=== PATIENT | female | born 1995 | race Caucasian/White ===

== ENCOUNTER 2019-02-23 10:22 | Emergency (ER) | payer MEDICAID ==
[~2019-02-23] VITALS: Ht 165.1 cm; Wt 72.4 kg
[2019-02-23 10:37] VITALS: BP 121/74; Ht 165.1 cm; Wt 72.4 kg
[2019-02-23] MEDS ORDERED: PRENAVITE1 TAB PO (10:38)
[2019-02-23] MEDS ORDERED: PENICILLIN V P500 MG PO (11:38)
[2019-03-15 11:35] VITALS: Ht 165.1 cm; Wt 72.4 kg
== END 2019-02-23 12:53 | disposition home or self-care (01) ==
LOC: D.ER 10:22
DX: K08.89 Other specified disorders of teeth and supporting structures (principal)

== ENCOUNTER 2019-03-15 10:59 | Inpatient (IN) | payer MEDICAID ==
[~2019-03-15] VITALS: Ht 165.1 cm; Wt 72.1 kg
[~2019-03-15 10:59] MED LIST: PENICILLIN V P500 MG PO; PRENAVITE1 TAB PO
[2019-03-15 11:35] VITALS: BP 113/56; Ht 165.1 cm; Wt 72.1 kg
[2019-03-15 11:49] LABS: HEMATOCRIT 31.9 % (36.0-48.0); HEMOGLOBIN 10.2 g/dL (12-16); MCH 27.3 pg (26.0-34.0); MCV 85.3 fL (80.0-100.0); MEAN PLATELET VOLUME 11.5 fL (7.4-10.4); RBC 3.74 10x6/uL (4.00-5.40); RDW 14.6 % (11.5-14.5); WBC 11.4 10x3/uL (4.8-10.8)
[2019-03-15 11:57] LABS: UDS - AMPHET NEGATIVE QUAL (NEGATIVE); UDS - BARB NEGATIVE QUAL (NEGATIVE); UDS - BENZO NEGATIVE QUAL (NEGATIVE); UDS - COCAINE NEGATIVE QUAL (NEGATIVE); UDS - OPIATE NEGATIVE QUAL (NEGATIVE); UDS - PCP NEGATIVE QUAL (NEGATIVE); UDS - THC POSITIVE QUAL (NEGATIVE)
[2019-03-15 12:13] LABS: APPEARANCE CLEAR (CLEAR); BILIRUBIN NEGATIVE (NEGATIVE); COLOR STRAW (YELLOW); GLUCOSE NEGATIVE (NEGATIVE); KETONE NEGATIVE (NEGATIVE); NITRITE NEGATIVE (NEGATIVE); PROTEIN NEGATIVE (NEGATIVE); SPECIFIC GRAVITY 1.005 (1.005-1.020); UROBILINOGEN NORMAL (NORMAL)
[2019-03-15 12:14] LABS: BACTERIA MODERATE /hpf (NEGATIVE); RED CELLS - URINE 0-5 /hpf (0-5); WHITE CELLS - URINE 0-5 /hpf (NEGATIVE)
--- NOTE | 2019-03-15 17:35 | NUR ---
epidural cath removed without problems- black tip intact.
[2019-03-15 19:50] VITALS: BP 122/57
--- NOTE | 2019-03-15 19:50 | NUR ---
PM ASSESSMENT COMPLETE CHARTED ON FLOWSHEET. PT RATES CRAMPING PAIN IN LOWER ABDOMEN AT 4/10. FF, MIDLINE, U2. PT STATES VOIDING WITHOUT ISSUES AND CLEANSING WITH IODINE SOLUTION. PT REPORTS LIGHT LOCHIA WITH SMALL CLOTS. IN CRIB AT BEDSIDE WITH NO DISTRESS NOTED. FOB AT BEDSIDE. PT STATES FEELING COMING BACK IN LEGS FROM EPIDURAL. PT DENIES ALL OTHER NEEDS AT THIS TIME. SRUPX2, CALL LIGHT AND PHONE WITHIN REACH.
--- NOTE | 2019-03-15 21:30 | NUR ---
PT C/O HEARTBURN AND PAIN AT 5/10 IN LOWER ABDOMEN. 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 HAT IN BATHROOM NOTED WITH RED TINGED URINE AT 250CC. PT DENIES ALL OTHER NEEDS AT THIS TIME. SRUPX2, CALL LIGHT AND PHONE WITHIN REACH.
--- NOTE | 2019-03-15 22:11 | NUR ---
ASSISTED PT WITH ROOM CHANGE TO ROOM 1276. PT AMBULATORY WITH TO NEW ROOM. ALL PERSONAL ITEMS ACCOUNTED FOR AND MOVED. PT STATES PAIN MEDS EFFECTIVE. PAIN RATED AT 3/10. DENIES ALL OTHER NEEDS AT THIS TIME. SRUPX2, CALL LIGHT AND PHONE WITHIN REACH.
--- NOTE | 2019-03-15 23:40 | NUR ---
ROUNDING COMPLETED BY THIS NURSE. PT SLEEPING. RESPIRATIONS EVEN AND UNLABORED. SLEEPING IN CRIB AT BEDSIDE. FOB AT BEDSIDE. NO DISTRESS NOTED. SRUPX2, CALL LIGHT AND PHONE WITHIN REACH.
--- NOTE | 2019-03-15 23:50 | NUR ---
ROUNDING COMPLETED BY THIS RN. PT SLEEPING IN BED RESPIRATIONS EVEN AND UNLABORED. IN CRIB AT BEDSIDE. FOB AT BEDSIDE. SRUPX2, CALL LIGHT AND PHONE WITHIN REACH.
--- NOTE | 2019-03-16 00:49 | NUR ---
ROUNDING COMPLETED BY THIS RN. 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 PT HOLDING , NO DISTRESS NOTED. PT DENIES ALL OTHER NEEDS AT THIS TIME. FOB AT BEDSIDE. SRUPX2, CALL LIGHT AND PHONE WITHIN REACH.
--- NOTE | 2019-03-16 02:12 | NUR ---
ROUNDING COMPLETED BY THIS RN. PT SLEEPING WITH FOB AT BEDSIDE. INFANT IN NURSERY AT THIS TIME. RESPIRATIONS EVEN AND UNLABORED, NO DISTRESS NOTED. SRUPX2, CALL LIGHT AND PHONE WITHIN REACH.
--- NOTE | 2019-03-16 04:06 | NUR ---
ROUNDING COMPLETED BY THIS RN. PT SLEEPING IN BED WITH FOB BEDSIDE. INFANT IN NURSERY AT THIS TIME. RESPIRATIONS EVEN AND UNLABORED. NO DISTRESS NOTED. SRUPX2, CALL LIGHT AND PHONE WITHIN REACH.
--- NOTE | 2019-03-16 06:10 | NUR ---
PT C/O OF CRAMPING PAIN IN LOWER ABDOMEN AREA. SEE EMAR FOR TYLENOL ADMIN. SLEEPING IN CRIB AT BEDSIDE. PT DENIES ALL OTHER NEEDS AT THIS TIME. SRUPX2, CALL LIGHT AND PHONE WITHIN REACH.
[2019-03-16 06:13] LABS: BASOPHILS 0.2 % (0-2); EOSINOPHILS 0.6 % (0-7); HEMATOCRIT 29.8 % (36.0-48.0); HEMOGLOBIN 9.4 g/dL (12-16); IMMATURE GRANULOCYTES 0.6 % (0-5); LYMPHOCYTES 15.1 % (15-50); MCH 26.9 pg (26.0-34.0); MCHC 31.5 g/dL (31.0-37.0); MCV 85.4 fL (80.0-100.0); MEAN PLATELET VOLUME 11.5 fL (7.4-10.4); MONOCYTES 7.8 % (2-11); NEUTROPHILS 75.7 % (40-80); PLATELET COUNT 229 10x3/uL (130-400); RBC 3.49 10x6/uL (4.00-5.40); RDW 14.8 % (11.5-14.5)
[2019-03-16 06:16] LABS: WBC 14.3 10x3/uL (4.8-10.8)
[2019-03-16 07:13] LABS: RAPID PLASMA REAGIN Non Reactive (Non Reactive)
--- NOTE | 2019-03-16 07:15 | NUR ---
ASSUMED CARE OF THIS PATIENT SITTING UP IN BED BOTTLEFEEDING . ALSO GETTING READY TO EAT BREAKFAST. WILL COMPLETE SHIFT ASSESSMENT AFTER EATING. SAYS SHE HAS SOME CRAMPING WHEN SHE GETS UP TO WALK. SAYS SHE HAD TYLENOL ABOUT AN HOUR AGO. DISCUSSED UTERINE CRAMPING AND INVOLUTION. VERBALIZED UNDERSTANDING. REMINDED TO KEEP BLADDER EMPTIED. GBS NEG, O+ RUBELLA IMMUNE, NEG UDS. 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 DISCUSSED PLAN OF CARE FOR TODAY. SIDE RAILS UP X 2, CALL LIGHT IN REACH.
--- NOTE | 2019-03-16 07:48 | NUR ---
TORADOL 10 MG GIVEN PO FOR RELIEF OF 6/10 CRAMPING/BACK PAIN. STILL BOTTLEFEEDING AND EATING BREAKFAST. SMOKER- DECLINED NICODERM PATCH AND SMOKING CESSATION REFERRAL. DECLINES FLU VACCINE. TO CALL IF ANYTHING IS NEEDED.
--- NOTE | 2019-03-16 09:16 | NUR ---
SHIFT ASSESSMENT COMPLETED. STILL WITH INTERMITTENT CRAMPING 09/20. REINFORCED THIS IS TO BE EXPECTED ESPECIALLY . PLANS TO SHOWER. FRESH WATER GIVEN. IN NURSERY. TO CALL IF ANYTHING IS NEEDED.
[2019-03-16 09:28] VITALS: BP 120/62
--- NOTE | 2019-03-16 09:40 | NUR ---
DR HOYT VISITED PATIENT. V.O. RECEIVED TO DC HOME WITH INFANT OR ROOMING-IN STATUS IF NOT DC'D HOME.
--- NOTE | 2019-03-16 10:02 | NUR ---
COMPLETED SHOWER. PARTIAL LINEN CHANGE DONE. BACK IN ROOM. SIDERAILS UP X 2, CALL LIGHT IN REACH. NO REQUESTS.
--- NOTE | 2019-03-16 10:03 | NUR ---
VERBAL AND WRITTEN INFORMATION GIVEN ON TDAP. DESIRES TDAP STATES "I THINK IT'S BEEN MORE THAN 10 YEARS SINCE I HAD IT". DECLINES FLU VACCINATION.
--- NOTE | 2019-03-16 11:00 | NUR ---
SITTING UP IN BED WATCHING TV. IN CRIB IN ROOM. DENIES NEEDING ANYTHING AT THIS TIME. WAITING ON DISPOSITION OF INFANT. TDAP REQUESTED FROM PHARMACY.
--- NOTE | 2019-03-16 11:53 | NUR ---
TDAP GIVEN IM LEFT DELTOID WITHOUT DIFFICULTY. SALINE LOCK REMOVED FROM LEFT WRIST, TIP INTACT. SCHEDULED TYLENOL GIVEN. 5/10 CRAMPING. IN CRIB, NO CURRENT VISITORS. WAITING ON LUNCH TO BE SERVED. PLANS FOR INFANT DC, PER PATIENT, ARE TO SEE HOW HE DOES NEXT COUPLE OF FEEDINGS AND HOME IF EATING OK. CALL LIGHT IN REACH. TO CALL IF ANYTHING IS NEEDED.
--- NOTE | 2019-03-16 13:25 | NUR ---
SITTING UP IN BED. ASSISTED PT WITH BOTTLEFEEDING . INFANT APPEARS TO BE EATING APPROPRIATELY. ENCOURAGED KEEPING INFANT AWAKE, PROPER USE OF BOTTLE FOR BOTTLEFEEDING AND PERIODIC BURPING OF . TO CALL IF FURTHER ASSISTANCE IS NEEDED. SIDE RAILS UP X 2. CALL LIGHT IN REACH. CRAMPING HAS IMPROVED NOW 07/23.
--- NOTE | 2019-03-16 14:31 | NUR ---
SITTING UP IN BED TALKING TO FAMILY. IN ROOM. SAYS INFANT ONLY ATE 25 ML LAST FEEDING FINISHED AT 1330. INFANT IS SUPPOSED TO BE TAKING 30 ML Q 3 HRS. Tate BYERS RN NURSERY NOTIFIED. WILL NOT BE DC'D TODAY. MUST FOLLOW ABOVE PARAMETERS AND FEED BY MOM. PT NOTIFIED. WILL ROOM IN.
--- NOTE | 2019-03-16 16:06 | NUR ---
CURRENTLY SLEEPING ON RIGHT SIDE. RESPIRATIONS EVEN. VISITOR IN ROOM. IN CRIB. WILL DC TO ROOMING IN STATUS WHEN AWAKE.
--- NOTE | 2019-03-16 16:57 | NUR ---
AWAKE, SITTING UP IN BED WITH IN ARMS. ASKED PT HOW 3:30 FEEDING, SAYS SHE SLEPT THROUGH IT AND NOW TRYING TO WAKE INFANT UP TO FEED. Tate BYERS RN NOTIFIED IN NURSERY AND TO ROOM TO TALK TO PATIENT REGARDING FEEDING. REGULAR DIET AT BEDSIDE. FEMALE VISITOR JUST LEFT.
--- NOTE | 2019-03-16 17:45 | NUR ---
SITTING UP IN BED EATING DINNER. REQUESTED PAIN MEDICATION FOR CRAMPING. 10/20 SCHEDULED TYLENOL 1000 MG GIVEN PO. PT HAS MOTRIN FOR USE WHEN DC'D. WILL COMPLETE DC TEACHING AFTER EATING. IN CRIB SLEEPING. SAYS SHE FEED THE 31 OF FORMULA.
--- NOTE | 2019-03-16 18:10 | NUR ---
DC TEACHING COMPLETED TO INCLUDE POST CARE, PP DEPRESSION, S&S INFECTION, DANGER SIGNS, MEDICATION ADMINISTRATION, BREASTCARE/BOTTLE FEEDING, SMOKING CESSATION, IMMUNIZATIONS AND FOLLOW-UP. INSTRUCTED APPOINTMENT FOR F/U IS SCHEDULED FOR Apr AT 0915. THIS WAS WRITTEN ON PT DC INSTRUCTION AND ON APPOINTMENT CARD. VERBALIZED UNDERSTANDING OF TEACHING. REVIEWED AND SIGNED ROOMING IN INFORMATION. WILL ROOM-IN IN CURRENT ROOM.
== END 2019-03-16 18:10 | disposition home or self-care (01) | DRG 807 ==
LOC: D.LDO 10:59 → D.LD 11:36
PROVIDERS: ADMIT Obstetrics & Gynecology; ATTEND Obstetrics & Gynecology
PROC: 10E0XZZ Delivery of Products of Conception, External Approach (ICD-10-PCS; principal; 2019-03-15)
DX: O99.334 Smoking (tobacco) complicating childbirth (principal); Z37.0 Single live birth; F17.200 Nicotine dependence, unspecified, uncomplicated; Z3A.39 39 weeks gestation of pregnancy; O71.82 Other specified trauma to perineum and vulva